=== PATIENT | female | born 1980 | race Asian ===

== ENCOUNTER 2016-05-19 00:26 | Emergency (ER) | payer OTHER ==
[~2016-05-19] VITALS: Ht 149.9 cm; Wt 62.1 kg
[2016-05-19 01:08] LABS: HEMATOCRIT 35.7 % (36.0-46.0); MCHC 32.8 G/DL (30.0-36.0); MCV 82.4 FL (83-99); MEAN PLAT.VOLUME 10.3 uM^3 (9.5-12.4); PLATELET COUNT 320 K/uL (156-360); RBC DIS.WIDTH-CV 14.6 % (11.8-14.6); RBC DIS.WIDTH-SD 44.4 % (39-53); RED BLOOD COUNT 4.33 M/uL (3.80-5.20); WHITE BLOOD COUNT 11.5 K/uL (4.1-10.2)
[2016-05-19 01:10] LABS: CHLORIDE 106 mEq/L (99-109); POTASSIUM 3.3 mEq/L (3.7-5.4); SODIUM 140 mEq/L (136-147)
[2016-05-19 01:10] LABS: BASE EXCESS 1.4 mEq/L (-3 to +3); BICARBONATE 24.6 mEq/L (22-26); CARBOXY HGB 2.5 % (0-5); METHEMOGLOBIN 0.9 % (0-1.5); PCO2 33 mm Hg (35-45); PO2 73 mm Hg (80-100); pH 7.48 (7.35-7.45)
[2016-05-19 01:11] LABS: COMMENTS - BLOOD GASES A+C+; FI02 21 %; SITE LR
[2016-05-19 01:11] LABS: GLUCOSE 179 mg/dL (70-99)
[2016-05-19 01:13] LABS: ANION GAP 13 MEQ/L (2-14)
[2016-05-19 01:15] LABS: GFR ESTIMATE (CALCULATED) > 59 mL/min/
[2016-05-19 01:16] LABS: UREA NITROGEN (BUN) 5 mg/dL (9-23)
[2016-05-19 01:22] LABS: TROP-I INTERPRETATION NEGATIVE; TROPONIN-I 0.05 ng/mL (0.0-0.30)
[2016-05-19 02:12] LABS: INFLUENZA A VIRAL ANTIGEN NEGATIVE; INFLUENZA B VIRAL ANTIGEN POSITIVE
[2016-05-19 04:40] LABS: METHEMOGLOBIN 0.6 % (0-1.5); PO2 79 mm Hg (80-100)
[2016-05-19 04:41] LABS: BICARBONATE 18.5 mEq/L (22-26); COMMENTS - BLOOD GASES C+A+; DEVICE 840 VENT; FI02 100 %; MECHANICAL RATE 20 resp/min; MODE AC; PCO2 57 mm Hg (35-45); PEEP 5 CM/H20; SITE LR; TIDAL VOLUME 400 ML; TOTAL RESP RATE 32 resp/min; pH 7.12 (7.35-7.45)
[2016-05-19 05:31] LABS: BASE EXCESS -6.6 mEq/L (-3 to +3); BICARBONATE 19.1 mEq/L (22-26); CARBOXY HGB 2.2 % (0-5); METHEMOGLOBIN 1.1 % (0-1.5)
[2016-05-19 05:32] LABS: DEVICE 840; FI02 100 %; INSPIRATION TIME 0.7 seconds; MECHANICAL RATE 28 resp/min; MODE AC/VC+; PCO2 38 mm Hg (35-45); PEEP 15 CM/H20; PO2 60 mm Hg (80-100); SITE LR; TIDAL VOLUME 450 ML; TOTAL RESP RATE 28 resp/min; pH 7.31 (7.35-7.45)
[2016-05-19 05:50] VITALS: BP 99/72
== END 2016-05-19 06:27 | disposition short-term general hospital (02) ==
LOC: EME 00:26
PROVIDERS: Emergency Medicine
PROC: 0BH17EZ Insertion of Endotracheal Airway into Trachea, Via Natural or Artificial Opening (ICD-10-PCS; principal; 2016-05-19)
PROC: 5A0935Z Assistance with Respiratory Ventilation, Less than 24 Consecutive Hours (ICD-10-PCS; 2016-05-19)
DX: J10.00 Influenza due to other identified influenza virus with unspecified type of pneumonia (principal); E87.6 Hypokalemia; R00.0 Tachycardia, unspecified; F17.200 Nicotine dependence, unspecified, uncomplicated
CPT/HCPCS: 36600; 71010; 71020; 80048; 82803; 83605; 84484; 85027; 87040; 87070; 87205; 87502; 93005; 94002; 94640; 99281; 99285; J0330; J2060; J2543; J2704; J3260; J3370; J3475; J7050

== ENCOUNTER 2016-07-14 11:41 | Inpatient (IN) | payer OTHER ==
[~2016-07-14] VITALS: Ht 149.9 cm; Wt 41.4 kg
[2016-07-14 13:01] LABS: CHLORIDE 103 mEq/L (99-109); POTASSIUM 3.8 mEq/L (3.7-5.4); SODIUM 139 mEq/L (136-147)
[2016-07-14 13:03] LABS: GLUCOSE 127 mg/dL (70-99)
[2016-07-14 13:04] LABS: ANION GAP 12 MEQ/L (2-14)
[2016-07-14 13:06] LABS: ALKALINE PHOSPHATASE 69 IU/L (3-129)
[2016-07-14 13:07] LABS: GFR ESTIMATE (CALCULATED) > 59 mL/min/
[2016-07-14 13:08] LABS: UREA NITROGEN (BUN) 9 mg/dL (9-23)
[2016-07-14 13:18] LABS: HEMATOCRIT 37.1 % (36.0-46.0); MCH 30.9 PG (29.0-34.0); MCHC 31.5 G/DL (30.0-36.0); MCV 97.9 FL (83-99); MEAN PLAT.VOLUME 8.9 uM^3 (9.5-12.4); NRBC (%) 0.2 /100 WBC (0-0); PLATELET COUNT 482 K/uL (156-360); RBC DIS.WIDTH-SD 61.2 % (39-53); RED BLOOD COUNT 3.79 M/uL (3.80-5.20); WHITE BLOOD COUNT 13.1 K/uL (4.1-10.2)
[2016-07-14 13:22] LABS: INTER. NORMALIZED RATIO 1.1; PTT 25.6 (25-32)
[2016-07-14] MEDS ORDERED: LASIX20 MG PO (15:48)
[2016-07-14] MEDS ORDERED: ELIQUIS5 MG PO (15:48)
[2016-07-14] MEDS ORDERED: CALCIDOL8000 UNIT/ PO (15:50)
[2016-07-14] MEDS ORDERED: MULTI-VITAMIN1 EAC4 PO (15:51)
[2016-07-14] MEDS ORDERED: METOPROLOL TART75 MG PO (15:51)
[2016-07-14 19:28] LABS: TROP-I INTERPRETATION NEGATIVE; TROPONIN-I < 0.01 ng/mL (0.0-0.30)
[2016-07-14 21:54] VITALS: BP 109/75
[2016-07-15 01:04] LABS: TROP-I INTERPRETATION NEGATIVE; TROPONIN-I < 0.01 ng/mL (0.0-0.30)
[2016-07-15 03:33] VITALS: BP 93/63
[2016-07-15 06:43] LABS: MCH 30.4 PG (29.0-34.0); MCHC 31.1 G/DL (30.0-36.0); MCV 97.5 FL (83-99); MEAN PLAT.VOLUME 8.7 uM^3 (9.5-12.4); PLATELET COUNT 427 K/uL (156-360); RBC DIS.WIDTH-CV 16.5 % (11.8-14.6); RBC DIS.WIDTH-SD 59.4 % (39-53); RED BLOOD COUNT 3.59 M/uL (3.80-5.20); WHITE BLOOD COUNT 10.9 K/uL (4.1-10.2)
[2016-07-15 07:08] LABS: ANION GAP 9 MEQ/L (2-14); CHLORIDE 98 MEQ/L (99-109); GFR ESTIMATE (CALCULATED) > 59 mL/min/; POTASSIUM 4.2 MEQ/L (3.7-5.4); SAMPLE HEMOLYSIS CHECK 0; SAMPLE ICTERIC CHECK 0; SAMPLE LIPEMIA CHECK 0; SODIUM 140 MEQ/L (136-147); UREA NITROGEN (BUN) 6 mg/dL (9-23)
[2016-07-15 07:09] LABS: GLUCOSE 91 mg/dL (70-99)
[2016-07-15 08:15] VITALS: BP 113/90
[2016-07-15 11:29] VITALS: BP 106/71
== END 2016-07-15 13:44 | disposition short-term general hospital (02) | DRG 292 ==
LOC: EME 11:41 → 4EAST 15:16 → EDOF 15:16 → 4EAST 21:41
PROVIDERS: Emergency Medicine; Internal Medicine
DX: I50.31 Acute diastolic (congestive) heart failure (principal); J98.11 Atelectasis; J90 Pleural effusion, not elsewhere classified; I34.0 Nonrheumatic mitral (valve) insufficiency; I36.1 Nonrheumatic tricuspid (valve) insufficiency; I27.2 Other secondary pulmonary hypertension; I51.7 Cardiomegaly; D64.9 Anemia, unspecified; R74.0 Nonspecific elevation of levels of transaminase and lactic acid dehydrogenase [LDH]; D72.829 Elevated white blood cell count, unspecified; I95.9 Hypotension, unspecified; Z86.718 Personal history of other venous thrombosis and embolism; Z87.891 Personal history of nicotine dependence; Z80.8 Family history of malignant neoplasm of other organs or systems; Z82.3 Family history of stroke
CPT/HCPCS: 71020; 71275; 80048; 80053; 83735; 83880; 84100; 84484; 85027; 85610; 85730; 93005; 93306; 99281; 99285; J1650; J1940; J2405

== ENCOUNTER 2016-12-30 23:30 | Inpatient (IN) | payer OTHER ==
[~2016-12-30] VITALS: Ht 149.9 cm; Wt 63.9 kg
[~2016-12-30 23:30] MED LIST: CALCIDOL8000 UNIT/ PO; ELIQUIS5 MG PO; LASIX20 MG PO; LOPRESSOR25 MG PO; MULTI-VITAMIN1 EAC4 PO
[2016-12-31 00:04] LABS: HEMATOCRIT 42.2 % (36.0-46.0); MCH 28.8 PG (29.0-34.0); MCHC 32.9 G/DL (30.0-36.0); MCV 87.6 FL (83-99); MEAN PLAT.VOLUME 9.7 uM^3 (9.5-12.4); PLATELET COUNT 312 K/uL (156-360); RBC DIS.WIDTH-CV 13.4 % (11.8-14.6); RBC DIS.WIDTH-SD 42.5 % (39-53); RED BLOOD COUNT 4.82 M/uL (3.80-5.20); WHITE BLOOD COUNT 13.1 K/uL (4.1-10.2)
[2016-12-31 00:14] LABS: CHLORIDE 106 mEq/L (99-109); POTASSIUM 3.8 mEq/L (3.7-5.4); SODIUM 140 mEq/L (136-147)
[2016-12-31 00:20] LABS: GFR ESTIMATE (CALCULATED) > 59 mL/min/; UREA NITROGEN (BUN) 14 mg/dL (9-23)
[2016-12-31 00:25] LABS: TROP-I INTERPRETATION NEGATIVE; TROPONIN-I < 0.01 ng/mL (0.0-0.30)
[2016-12-31 02:18] LABS: INTER. NORMALIZED RATIO 0.9; PROTHROMBIN TIME 10.2 SEC (10.2-12.9)
[2016-12-31 02:20] LABS: PTT 31.9 SEC (25-37)
[2016-12-31 02:23] LABS: DIRECT BILIRUBIN 0.1 mg/dL (0.0-0.3)
[2016-12-31 02:24] LABS: LIPASE 24 U/L (1.0-51.0)
[2016-12-31 02:30] LABS: QUANTITATIVE HCG < 4.0 MIU/ML
[2016-12-31 03:00] LABS: ALKALINE PHOSPHATASE 73 IU/L (3-129)
[2016-12-31 03:01] LABS: TOTAL BILIRUBIN 0.4 mg/dL (0.0-1.0)
[2016-12-31 03:03] LABS: ANION GAP 12 MEQ/L (2-14)
[2016-12-31 03:08] LABS: GLUCOSE 112 mg/dL (70-99)
[2016-12-31 04:34] LABS: INFLUENZA A VIRAL ANTIGEN NEGATIVE; INFLUENZA B VIRAL ANTIGEN NEGATIVE
[2016-12-31 04:53] LABS: ADD MIUA? YES; BILIRUBIN NEGATIVE; BLOOD MODERATE; COLOR STRAW ((YELLOW)); GLUCOSE (STRIP) NEGATIVE; KETONES NEGATIVE; LEUKOCYTES TRACE; NITRITE NEGATIVE; PROTEIN (STRIP) NEGATIVE; SPECIFIC GRAVITY 1.009 (1.000-1.030); UROBILINOGEN 0.2 MG/DL (0.2-1.0)
[2016-12-31 05:12] LABS: BACTERIA RARE /HPF; EPITHELIAL CELLS RARE /HPF; MUCUS TRACE /LPF; RED BLOOD CELLS 0-5 /HPF (0-5); UCUL ADDED? NO; WHITE BLOOD CELLS 0-5 /HPF (0-5)
[2016-12-31] MEDS ORDERED: LOPRESSOR25 MG PO (05:30)
[2016-12-31] MEDS ORDERED: ADVIL PM1 TABLET PO (05:32)
[2016-12-31] MEDS ORDERED: ASPIR 8181 M1 PO (05:32)
[2016-12-31 06:43] LABS: EOSINOPHIL (%) 0.1 % (0-5); HEMATOCRIT 41.1 % (36.0-46.0); IMMATURE GRANULOCYTE (%) 0.3 % (0.0-0.7); IMMATURE GRANULOCYTE COUNT 0.1 K/uL; INSTRUMENT ABS NEUTROPHIL CT 17.5 K/uL; LYMPHOCYTE COUNT 0.8 K/uL (1.0-2.8); MCH 28.8 PG (29.0-34.0); MCHC 33.1 G/DL (30.0-36.0); MCV 86.9 FL (83-99); MEAN PLAT.VOLUME 9.6 uM^3 (9.5-12.4); MONOCYTE (%) 4.6 % (3-12); MONOCYTE COUNT 0.9 K/uL (0-0.8); NEUTROPHIL (%) 90.5 % (45-76); NEUTROPHIL COUNT 17.5 K/uL (1.8-6.4); PLATELET COUNT 287 K/uL (156-360); RBC DIS.WIDTH-CV 13.3 % (11.8-14.6); RBC DIS.WIDTH-SD 42.5 % (39-53); RED BLOOD COUNT 4.73 M/uL (3.80-5.20); WHITE BLOOD COUNT 19.4 K/uL (4.1-10.2)
[2016-12-31 07:11] LABS: ERTH.SED.RATE 32 MM/HR (0-20)
[2016-12-31 07:45] LABS: AMPHETAMINES QUANT VALUE 0 NG/ML; BARBITUATES QUANT VALUE 0 NG/ML; BENZODIAZEPINES QUANT VALUE 0 NG/ML; BENZODIAZEPINES, URINE SCREEN Negative (200 ng/mL); MARIJUANA QUANT VALUE 0 NG/ML; OPIATES QUANTITATIVE VALUE 0 NG/ML; PHENCYCLIDINE QUANT VALUE 0 NG/ML
[2016-12-31 09:00] VITALS: BP 148/95
[2016-12-31 11:16] LABS: TROP-I INTERPRETATION NEGATIVE; TROPONIN-I 0.03 ng/mL (0.0-0.30)
[2016-12-31 12:00] VITALS: BP 142/97
[2016-12-31 15:30] VITALS: BP 139/92
[2016-12-31 17:14] LABS: TROP-I INTERPRETATION NEGATIVE; TROPONIN-I 0.02 ng/mL (0.0-0.30)
[2016-12-31 20:00] VITALS: BP 120/90
[2016-12-31 23:22] LABS: TROP-I INTERPRETATION NEGATIVE; TROPONIN-I < 0.01 ng/mL (0.0-0.30)
[2017-01-01 00:30] VITALS: BP 122/85
[2017-01-01 03:20] VITALS: BP 122/80
[2017-01-01 06:00] LABS: EOSINOPHIL (%) 1.2 % (0-5); EOSINOPHIL COUNT 0.1 K/uL (0-0.3); HEMATOCRIT 41.3 % (36.0-46.0); IMMATURE GRANULOCYTE (%) 0.3 % (0.0-0.7); LYMPHOCYTE COUNT 1.7 K/uL (1.0-2.8); MCH 28.1 PG (29.0-34.0); MCV 88.1 FL (83-99); MEAN PLAT.VOLUME 9.9 uM^3 (9.5-12.4); MONOCYTE COUNT 0.9 K/uL (0-0.8); NEUTROPHIL (%) 68.8 % (45-76); PLATELET COUNT 282 K/uL (156-360); RBC DIS.WIDTH-CV 13.8 % (11.8-14.6); RBC DIS.WIDTH-SD 44.4 % (39-53); RED BLOOD COUNT 4.69 M/uL (3.80-5.20); WHITE BLOOD COUNT 8.7 K/uL (4.1-10.2)
[2017-01-01 06:25] LABS: ALKALINE PHOSPHATASE 54 IU/L (3-129); ANION GAP 9 MEQ/L (2-14); CHLORIDE 106 MEQ/L (99-109); GFR ESTIMATE (CALCULATED) > 59 mL/min/; GLUCOSE 101 mg/dL (70-99); POTASSIUM 3.6 MEQ/L (3.7-5.4); SAMPLE HEMOLYSIS CHECK 0; SAMPLE ICTERIC CHECK 0; SAMPLE LIPEMIA CHECK 0; SODIUM 139 MEQ/L (136-147); TOTAL BILIRUBIN 0.6 MG/DL (0.0-1.0); UREA NITROGEN (BUN) 7 mg/dL (9-23)
[2017-01-01 07:00] VITALS: BP 124/89
[2017-01-01 11:30] VITALS: BP 122/86
[2017-01-01] MEDS ORDERED: AZITHROMYCIN500 M1 PO (12:39)
[2017-01-01] MEDS ORDERED: AMLODIPINE BESYL5 MG PO (12:39)
== END 2017-01-01 15:53 | disposition home or self-care (01) | DRG 305 ==
LOC: EME 23:30 → 4EAST 12-31 04:50 → EDOF 12-31 04:50 → ENRESERV 12-31 05:05 → 4EAST 12-31 07:48 → ENPENDDIS 01-01 → 4EAST 01-01 15:53
PROVIDERS: Emergency Medicine; Hospitalist; Physician Assistant Medical
DX: I16.0 Hypertensive urgency (principal); J01.90 Acute sinusitis, unspecified; J20.8 Acute bronchitis due to other specified organisms; I11.0 Hypertensive heart disease with heart failure; I50.32 Chronic diastolic (congestive) heart failure; I27.2 Other secondary pulmonary hypertension; F32.9 Major depressive disorder, single episode, unspecified; F41.9 Anxiety disorder, unspecified; R00.0 Tachycardia, unspecified; Z79.01 Long term (current) use of anticoagulants; Z86.718 Personal history of other venous thrombosis and embolism; Z91.14 Patient's other noncompliance with medication regimen
CPT/HCPCS: 71020; 71275; 80048; 80053; 80076; 80306 90; 81003; 83605; 83690; 83880; 84484; 84702; 85025; 85027; 85610; 85651; 85730; 86140; 87040; 87502; 87651 90; 93005; 94640; 99202; 99281; 99285; J0696; J1644; J3370; J7030; J7050